=== PATIENT | female | born 1980 | race Caucasian/White ===

== ENCOUNTER → 2016-04-13 | Outpatient (CLI) | payer BC ==
[~2016-04-13] MED LIST: IRON TABLETS325 MG PO; NOMEDS; NOMEDS *; PERCOCET 5/3251 EACH PO; PRENATAL PLUS1 TA1 PO; SYNTHROID 0.0.075 MG PO
--- NOTE | 2016-04-13 16:03 | RADIOLOGY REPORT PS360 ---
US ABD(COMPLETE-MULTI ORGANS HISTORY: PAIN ALLA GAXIOLA ORDERING PHYSICIAN: Darlene Bustillo APRN PATIENT AGE: 35 years COMPARISON: None FINDINGS: PANCREAS:Unremarkable. No obvious mass or abnormal fluid collection. No ductal dilatation LIVER:No focal liver lesion evident. There is mild prominence of the intrahepatic biliary radicles. The common bile duct however is unremarkable at 5 mm. RIGHT KIDNEY:Unremarkable. Normal size and echogenicity. No hydronephrosis LEFT KIDNEY:Unremarkable. No hydronephrosis. Normal size and echogenicity. GALLBLADDER:There are multiple gallstones present. Gallbladder wall is slightly thickened measuring up to 4 mm. No pericholecystic fluid or biliary dilatation. AORTA:No evidence of aneurysmal dilatation. SPLEEN:Unremarkable. Normal size and echogenicity ASCITES:None demonstrated. IMPRESSION: Cholelithiasis with mildly thickened gallbladder wall
== END ==
LOC: RAD 07:53
DX: R10.11 Right upper quadrant pain (principal); R11.0 Nausea